=== PATIENT | male | born 1975 | race Caucasian/White ===

== ENCOUNTER 2018-11-07 16:36 | Inpatient (IN) | payer MEDICAID ==
[~2018-11-07] VITALS: Ht 170.2 cm; Wt 78.1 kg
--- NOTE | ~2018-11-07 | HEMODYNAMI ---
PATIENT:DHEERAJ MORLEY MEDICAL RECORD: [id number] : 73 LOCATION:[id number] ADMISSION DATE: 11/07/18 Generatedon:11/09/201812:03 Patient name: DHEERAJ MORLEY Patient #: [id number] SSN: : 1975 Date of study: 11/09/2018 Page: Of Hemodynamic Procedure Report Patient Data Patient Demographics Procedure consent was obtained First Name: DHEERAJ Gender: Male Last Name: MILLI : 1975 Middle Initial: MARGIE Age: 43 year(s) Patient #: [id number] Race: Unknown Additional ID: [id number] Contact details Address: [address] [place] [address] State: [place] City: [place] Zip code: [address] Past Medical History Allergies: No known allergies Admission Admission Data Admission Date: 11/07/2018 Admission Time: 18:56 Room #: D.2237 Height (in.): 66.93 BSA: 1.71 (m2) Height (cm.): 170 BMI: 21.23 (kg/m2) Weight (lbs.): 135.28 Weight (kg.): 61.36 Lab Results Lab Result Date: 11/09/2018 Lab Result Time: 0:00 Biochemistry Name Units Result Min Max BUN mg/dl 34 --(----)-* 7 18 Creatinine mg/dl 1.3 --(---*)-- 0.6 1.3 CBC Name Units Result Min Max Hemoglobin g/dl 13.8 --(*---)-- 13.5 17.5 Procedure Procedure Types Cath Procedure Diagnostic Procedure [facility] w[facility] Procedure Description Procedure Date Procedure Date: 11/09/2018 Procedure Start Time: 11:53 Procedure End Time: 11:59 Procedure Staff Name Function Gregory Chew MD Performing Physician Zion Armando RT Monitor Katya Lira RT Scrub Lucille Qureshi RN Nurse Procedure Data Cath Procedure Fluoroscopy Diagnostic fluoroscopy Total fluoroscopy Time: 0.9 time: 0.9 min min Diagnostic fluoroscopy Total fluoroscopy dose: 279 dose: 279 mGy mGy Contrast Material Contrast Material Type Amount (ml) Isovue 300 21 Entry Location Entry Primary Successful Side Size Upsize Upsize Entry Closure Lynne ccessful Closure Location (Fr) 1 (Fr) 2 (Fr) Remarks Device Remarks Radial Right 6 Fr Mechanical artery Short Compression Estimated blood loss: 10 ml Diagnostic catheters Device Type Used For End Catheter Placement DIAGNOSTIC [place] 110cm 5 Procedure Fr catheter ([id number]) Procedure Complications No complications Procedure Medications Medication Administration Route Dosage Oxygen etCO2 Nasal cannula 2 l/min Lidocaine 2% added to field 20 Heparin Flush Bag added to field 2 bags (1000units/500ml NS) 0.9% NaCl I.V. 100 ml/hr Versed I.V. 2 mg Fentanyl I.V. 100 mcg Versed I.V. 2 mg Radial Cocktail I.A. 1 syringe (Verapomil 2mg/Nitro 400mcg/Heparin 1500units) Hemodynamics Rest BSA: 1.71 (m2) HGB: 13.8 (g/dl) O2 Consumption: Estimated: 231.35 (ml/min) O2 Co nsumption indexed: Estimated:135.29 (ml/min/m) Heart Rate: 108 (bpm) Snapshots Pre Cath Intra NCS Post Cath Vital Signs Time Heart Resp SPO2 etCO2 NIBP (mmHg) Rhythm Pain Sedation Rate (ipm) (%) (mmHg) Status Level (bpm) 11:49:53 107 18 97 16.6 154/114(120) NSR 0 (11) 10(A) , No pain 11:54:03 111 17 99 26.4 156/111(131) NSR 0 (11) 10(A) , No pain 11:58:17 99 13 95 28.7 142/102(116) NSR 0 (11) 9(A) , No pain 12:02:33 98 15 96 27.9 143/99(118) NSR 0 (11) 10(A) , No pain Medications Time Medication Route Dose Verified Delivered Reason Notes Effectiveness by by 11:45:44 Oxygen etCO2 2 l/min Gregory Adkins used for Nasal Jeevan Qureshi RN procedure cannula 11:50:13 Versed I.V. 2 mg Gregory Danielsie for sedation Jeevan Qureshi RN 11:50:19 Fentanyl I.V. 100 mcg Gregory Adkins for sedation Jeevan Qureshi RN 11:51:50 Lidocaine 2% added 20ml Gregory Jenkins for local to vial Jeevan Chew MD anesthetic field 11:51:57 Heparin Flush added 2 bags Gregory Jenkins used for Bag to Jeevan Chew MD procedure (1000units/500ml field NS) 11:52:05 0.9% NaCl I.V. 100 Gregory Adkins Per ml/hr Jeevan Qureshi RN physician 11:55:41 Versed I.V. 2 mg Gregory Adkins for sedation Jeevan Qureshi RN 11:57:05 Radial Cocktail I.A. 1 Gregory Jenkins for (Verapomil syringe Jeevan Chew MD vasodilation 2mg/Nitro 400mcg/Heparin 1500units) Procedure Log Time Note 11:15:49 Zion Armando RT(R) sent for patient. Start room use. 11:15:50 Diagnostic Cath status Elective 11:15:51 Signed procedure consent form obtained from patient. 11:25:14 Patient allergic to No known allergies 11:25:33 Lab Result : BUN 34 mg/dl 11:25:33 Lab Result : Hemoglobin 13.8 g/dl 11:25:33 Lab Result : Creatinine 1.3 mg/dl 11:30:29 Patient Height : 66.93 inches 11:30:38 Patient Weight : 135.28 lbs 11:37:34 Patient received from Med/Surg to CCL 1 Alert and oriented. Tansferred to table in Supine position. 11:37:35 Warm blankets applied, and abner hugger turned on for patient comfort. 11:37:35 Correct patient and procedure confirmed by team. 11:37:36 ECG and BP/O2 sat monitors applied to patient. 11:45:44 Oxygen 2 l/min etCO2 Nasal cannula was administered by Lucille Qureshi RN; used for procedure; 11:48:47 Vital chart was started 11:48:48 Baseline sample Acquired. 11:48:52 Rhythm: sinus rhythm 11:48:53 Full Disclosure recording started 11:49:02 H&P Date Dictated: 11/09/2018 Within 30 days and on chart.. 11:49:03 Pre-procedure instructions explained to patient. 11:49:03 Pre-op teaching completed and patient verbalized understanding. 11:49:05 Family in patients room. 11:49:06 Patient NPO since Midnight. 11:49:09 Is the patient allergic to Iodine/contrast media? No. 11:49:17 Is patient on blood thinner?No 11:49:18 Patient diabetic? No. 11:49:21 Previous problem with sedation/anesthesia? No ? 11:49:23 Snore? Yes 11:49:24 Sleep apnea? No 11:49:25 Deviated septum? No 11:49:26 Opens mouth fully? Yes 11:49:27 Sticks out tongue? Yes 11:49:29 Airway obstruction? No ? 11:49:31 Dentures? No ? 11:49:33 Pre procedure: right dorsailis pedis pulse 1+ Palpable, but thready & weak; easily obliterated 11:49:35 Modified John's test Ulnar < 7 seconds 11:49:37 Patient pain scale 0/10 ?. 11:49:42 IV patent on arrival in right hand with 0.9% NaCl at KVO. 11:49:44 Lab results completed and on chart. 11:49:47 Right Radial & Right Groin area was prepped with chlora-prep and draped in sterile fashion 11:49:47 Alarms reviewed by R. N. 11:49:48 Sharps counted by scrub and verified by R.N. 11:49:49 --------ALL STOP TIME OUT------ 11:49:50 Final Timeout: patient, procedure, and site verified with staff and physician. All members of the team are in agreement. 11:49:56 Right Radial & Right Groin site verified by team. 11:49:59 Physical assessment completed. ASA score P 2 - A patient with mild systemic disease as per Gregory Chew MD. 11:50:02 Sedation plan: IV Moderate Sedation Medication:Versed, Fentanyl 11:50:13 Versed 2 mg I.V. was administered by Lucille Qureshi RN; for sedation; 11:50:19 Fentanyl 100 mcg I.V. was administered by Lucille Qureshi RN; for sedation; 11:51:41 Use device set Radial Dx or PCI 11:51:42 Tegaderm 4 x 4 (1626W) opened to sterile field. 11:51:43 ACIST Manifold (25918) opened to sterile field. 11:51:44 ACIST Hand Control (93098) opened to sterile field. 11:51:45 ACIST Syringe (91898) opened to sterile field. 11:51:45 Medline Cath Pack ([id number]) opened to sterile field. 11:51:46 Bag Decanter (2002) opened to sterile field. 11:51:48 DIAGNOSTIC WIRE .035 260cm J wire (940812) opened to sterile field. 11:51:50 Lidocaine 2% 20ml vial added to field was administered by Gregory Chew MD; for local anesthetic; 11:51:51 SHEATH 6FR Slender (00-4670) opened to sterile field. 11:51:57 Heparin Flush Bag (1000units/500ml NS) 2 bags added to field was administered by Gregory Chew MD; used for procedure; 11:52:05 0.9% NaCl 100 ml/hr I.V. was administered by Lucille Qureshi RN; Per physician; 11:53:47 Procedure started. 11:53:51 Local anesthetic to right radial artery with Lidocaine 2% by Gregory Chew MD.INITIAL ACCESS ONLY 11:54:12 A 6 Fr Short sheath was inserted into the Right Radial artery 11:54:21 A DIAGNOSTIC [place] 110cm 5 Fr catheter (710842) was advanced over the wire and used for Procedure. 11:55:04 LV angiography performed. 11:55:05 LV gram done using SHORE 11:55:09 EF : 15 % 11:55:13 Injector settings: Ml/sec: 7, Volume: 15, 11:55:33 LCA angiography performed. 11:55:41 Versed 2 mg I.V. was administered by Lucille Qureshi RN; for sedation; 11:55:57 RCA angiography performed. 11:55:58 Catheter removed. 11:56:00 TR BAND Standard ([id number]) opened to sterile field. 11:57:05 Radial Cocktail (Verapomil 2mg/Nitro 400mcg/Heparin 1500units) 1 syringe I.A. was administered by Gregory Chew MD; for vasodilation; 11:57:08 Sheath removed intact; hemostasis achieved with Mechanical Compression to the Right Radial artery. 11:57:10 Procedure ended.(Physican Out) 11:57:40 Fluoroscopy time 00.90 minutes. 11:57:44 Fluoroscopy dose: 279 mGy 11:57:44 Flurop Dose total: 279 11:57:48 Contrast amount:Isovue 300 21ml. 11:57:52 Sharps counted by scrub and verified by R.N. 11:57:57 TR band inflated with 10cc of air. 11:57:59 Insertion/operative site no bleeding no hematoma. 11:58:01 Post Procedure Pulses reassessed and unchanged 11:58:03 Post-procedure physical assessment completed. ASA score P 2 - A patient with mild systemic disease as per Gregory Chew MD. 11:58:06 Post procedure rhythm: unchanged. 11:58:08 Estimated blood loss: 10 ml 11:58:17 Post procedure instruction explained to patient.Patient verbalizes understanding. 11:58:18 Patient needs reinforcement of post procedure teaching. 11:58:18 Procedure and supply charges have been captured, reviewed, submitted and are correct. 11:58:38 MBrace Wrist Support ([id number]) opened to sterile field. 11:58:55 Procedure Complication : No complications 11:58:58 Vital chart was stopped 11:58:58 See physician's report for complete and final results. 11:59:02 Report given to Med II. 11:59:05 Patient transfered to Med II with Bed. 11:59:18 Procedure ended. 11:59:18 Full Disclosure recording stopped 12:03:08 End room use (Document Last) Device Usage Item Name Manufacture Quantity Catalog Hospital Part Current Minimal Lot# / Number Charge Number Stock Stock Serial# Code Tegaderm 4 3M 1 1626W [id number] [id number] [id number] 5 x 4 (1626W) ACIST Acist 1 30610 442469 021374 496689 5 Manifold Medical (76657) Systems Inc ACIST Hand Acist 1 08048 576762 906772 318635 5 Control Medical (53387) Systems Inc ACIST Acist 1 98814 321388 903881 808246 20 Syringe Medical (60672) Systems Inc Medline Medline 1 [id number] 114505 80780 795980 5 Cath Pack ([id number]) Bag Microtek 1 2001S 600615 81353 791228 5 Decanter Medical Inc. () DIAGNOSTIC St Amol 1 910147 019781 804605 049894 30 WIRE .035 260cm J wire (327802) SHEATH 6FR Terumo 1 [id number] 549301 658075 591051 5 Slender (80-1060) DIAGNOSTIC Terumo 1 40-1048 654164 282992 186162 5 [place] 110cm 5 Fr catheter (185915) TR BAND Terumo 1 [id number] 862350 152434 423476 40 Standard ([id number]) MBrace Advanced 1 140-0250-00 628155 59299 114673 5 Wrist Vascular Support Dynamics ([id number]) Signature Audit [place] Stage Time Signature Unsigned Intra-Procedure 11/09/2018 Zion Armando 12:03:22 PM RT(R) Signatures Monitor : Zion Armando RT Signature : Date : Time : [facility] [address] [place] [address]
[2018-11-07 18:02] LABS: BASOPHILS 0.4 % (0-2); HEMATOCRIT 40.4 % (42.0-54.0); HEMOGLOBIN 13.7 g/dL (13.5-17.5); IMMATURE GRANULOCYTES 0.3 % (0-5); LYMPHOCYTES 22.1 % (15-50); MCH 30.4 pg (26.0-34.0); MCHC 33.9 g/dL (31.0-37.0); MCV 89.6 fL (80.0-100.0); MEAN PLATELET VOLUME 10.3 fL (7.4-10.4); MONOCYTES 5.8 % (2-11); NEUTROPHILS 62.4 % (40-80); PLATELET COUNT 253 10x3/uL (130-400); RBC 4.51 10x6/uL (4.20-6.10); RDW 14.3 % (11.5-14.5); WBC 7.4 10x3/uL (4.8-10.8)
[2018-11-07 18:21] LABS: ALBUMIN 3.4 g/dL (3.4-5.0); ALKALINE PHOSPHATASE 112 U/L (46-116); ALT (SGPT) 65 U/L (10-68); BILIRUBIN - TOTAL 0.54 mg/dL (0.2-1.3); CALC OSMOLALITY 289 mosm/kg (275-300); CALCIUM 8.6 mg/dL (8.5-10.1); CARBON DIOXIDE 23.1 mmol/L (21.0-32.0); CHLORIDE - SERUM 108 mmol/L (98-107); GLUCOSE 113 mg/dL (74-106); POTASSIUM - SERUM 4.2 mmol/L (3.5-5.1); PROTEIN - SERUM 6.7 g/dL (6.4-8.2); SODIUM 143 mmol/L (136-145); UREA NITROGEN 24 mg/dL (7-18); eGFR NON AFRICAN AMERICAN 86 mL/min (90-120)
[2018-11-08] VITALS: BP 139/100; Ht 170.2 cm; Wt 78.1 kg
[2018-11-08 04:00] VITALS: BP 145/111
[2018-11-08 08:51] VITALS: BP 130/97
[2018-11-08 15:27] VITALS: BP 128/76
[2018-11-08 20:28] VITALS: BP 155/111
[2018-11-08 23:54] VITALS: BP 151/98
[2018-11-09 04:32] VITALS: BP 147/109
[2018-11-09 05:57] LABS: BASOPHILS 0.2 % (0-2); EOSINOPHILS 1.7 % (0-7); HEMOGLOBIN 13.8 g/dL (13.5-17.5); IMMATURE GRANULOCYTES 0.1 % (0-5); MCH 30.1 pg (26.0-34.0); MCHC 32.9 g/dL (31.0-37.0); MCV 91.7 fL (80.0-100.0); MEAN PLATELET VOLUME 11.3 fL (7.4-10.4); MONOCYTES 5.6 % (2-11); NEUTROPHILS 66.4 % (40-80); PLATELET COUNT 361 10x3/uL (130-400); RBC 4.58 10x6/uL (4.20-6.10); RDW 14.9 % (11.5-14.5); WBC 13.2 10x3/uL (4.8-10.8)
[2018-11-09 06:15] LABS: ANION GAP 15.3 mmol/L (8-16); CALCIUM 8.3 mg/dL (8.5-10.1); CARBON DIOXIDE 19.3 mmol/L (21.0-32.0); POTASSIUM - SERUM 4.6 mmol/L (3.5-5.1)
[2018-11-09 06:18] LABS: CREATININE - SERUM 1.3 mg/dL (0.6-1.3)
[2018-11-09 07:06] LABS: CKMB 2.6 U/L (0.0-3.6); CREATINE KINASE 77 UL (21-232)
[2018-11-09 09:00] VITALS: BP 145/113
[2018-11-09 09:02] LABS: TROPONIN-I 0.104 ng/mL (0.000-0.060)
[2018-11-09 11:10] LABS: CREATINE KINASE 313 UL (21-232)
[2018-11-09 11:31] LABS: CKMB 8.2 U/L (0.0-3.6)
[2018-11-09 21:10] VITALS: BP 141/94
[2018-11-10] VITALS (7 sets, daily range): BP systolic 103–150; BP diastolic 62–104
[2018-11-10 06:51] LABS: BASOPHILS 0.2 % (0-2); EOSINOPHILS 6.1 % (0-7); HEMATOCRIT 40.3 % (42.0-54.0); HEMOGLOBIN 13.7 g/dL (13.5-17.5); IMMATURE GRANULOCYTES 0.1 % (0-5); LYMPHOCYTES 26.3 % (15-50); MCH 30.5 pg (26.0-34.0); MCV 89.8 fL (80.0-100.0); MEAN PLATELET VOLUME 11.6 fL (7.4-10.4); MONOCYTES 6.9 % (2-11); NEUTROPHILS 60.4 % (40-80); PLATELET COUNT 284 10x3/uL (130-400); RBC 4.49 10x6/uL (4.20-6.10); RDW 14.6 % (11.5-14.5); WBC 9.5 10x3/uL (4.8-10.8)
[2018-11-10 07:44] LABS: CALC OSMOLALITY 283 mosm/kg (275-300); CALCIUM 8.5 mg/dL (8.5-10.1); CHLORIDE - SERUM 104 mmol/L (98-107); CREATININE - SERUM 1.1 mg/dL (0.6-1.3); GLUCOSE 102 mg/dL (74-106); SODIUM 139 mmol/L (136-145); UREA NITROGEN 29 mg/dL (7-18); eGFR NON AFRICAN AMERICAN 77 mL/min (90-120)
[2018-11-10 07:45] LABS: CARBON DIOXIDE 24.3 mmol/L (21.0-32.0); POTASSIUM - SERUM 3.9 mmol/L (3.5-5.1); TROPONIN-I 0.083 ng/mL (0.000-0.060)
[2018-11-11 03:45] VITALS: BP 114/73
[2018-11-11 08:13] VITALS: BP 135/83
--- NOTE | 2018-11-11 14:36 | OP ---
PATIENT NAME: DHEERAJ MORLEY MEDICAL RECORD: [id number] :73 LOCATION:D.M2 D.2119 ADMISSION DATE:11/07/18 SURGEON: TONY URIARTE MD DATE OF OPERATION: 11/09/2018 PROCEDURES: 1. Left heart catheterization. 2. Selective coronary angiography. 3. Left ventriculogram. INDICATION: Elevated troponin, CHF, dilated cardiomyopathy, and abnormal ECG. PROCEDURE IN DETAIL: After informed consent was obtained with detailed description of risks and benefits as well as alternative therapies, the patient elected to proceed with angiogram and heart catheterization. The right radial area was prepped and draped in normal sterile fashion. Right radial artery was cannulated via modified Seldinger technique with placement of 5-Brazilian sheath. All catheters were exchanged through this sheath. FINDINGS: Left ventriculogram performed in standard 30-degree SHORE view reveals dilated cardiomyopathy. Ejection fraction 10% to 15%. SELECTIVE CORONARY ANGIOGRAPHY: Left main, left anterior descending, left circumflex, and right coronary artery are all smooth-walled vessels with no angiographic evidence of coronary artery disease. OVERALL IMPRESSION: 1. No evidence of coronary artery disease. 2. Severe nonischemic cardiomyopathy. Ejection fraction in 10% to 15% range. Center medical management and treatment of the cardiomyopathy. TRANSINT:[id number] Voice Confirmation ID: [id number] DOCUMENT ID: [id number] TONY URIARTE MD at 1436 CC: [id number] VILLA [id number] DICTATION DATE: 11/09/18 1200 STUNNER ANIMAL: 11/09/18 1857 ADM IN [place] [address] [place] [address]
--- NOTE | 2018-11-11 14:36 | EC ---
PATIENT:DHEERAJ MORLEY DATE OF SERVICE: 11/07/18 SEX: M MEDICAL RECORD: [id number] DATE OF : [birth year] LOCATION:D. D.211 AGE OF PATIENT: 43 ADMISSION DATE: 11/07/18 REFERRING PHYSICIAN: INTERPRETING PHYSICIAN: TONY CHEW MD ECHOCARDIOGRAM REPORT ECHO CHARGES 4 ECHO COMPLETE Date: 11/09/18 CLINICAL DIAGNOSIS: CP ECHOCARDIOGRAPHIC MEASUREMENTS (adult normal given) AC root (d.<3.7cm) 3.6 cm LV Septum d (<1.2 cm> 1.2 cm Valve Excursion 1.8 cm LV Septum (systole) 1.4 cm Left Atria (s.<4.0cm> 4.8 cm LVPW d(<1.2cm) 1.0 cm RV (d.<2.3cm) 3.5 cm LVPW (sytole) 1.0 cm LV diastole(<5.6CM) 6.5 cm MV E-F(>70mm/sec) cm LV systole 5.3 cm LVOT Diameter 2.3 cm MV exc.(>10mm) cm Est.ejection fraction (50-75%) % DOPPLER: LVIT cm/sec A 24 cm/sec E 76 cm/sec LA cm/sec RVSP 54.3 mmHg LVOT 43 cm/sec AOP1/2T m/s Asc. Ao 64 cm/sec RVOT 32 cm/sec RA cm/sec PA 77 cm/sec AV Gradient Peak 1.6 mmHg AV Mean 1.2 mmHg AV Area 2.6 cm MV Gradient Peak 3.3 mmHg MV Mean 1.4 mmHg MV Area cm COMMENTS: Setup Technician: Dennis [facility] [employer] Officer: 1 Dr. Chew TAPE# PACS Pericardial Effusion N DATE OF SERVICE: FINDINGS: 1. Left ventricular chamber size is dilated. Left ventricular systolic function is markedly reduced. Overall ejection fraction is in 10% to 15% range. There is akinesis of the anteroapical segments. 2. Left atrium is enlarged at 4.8 cm. Right atrium and right ventricular chamber sizes are as well mildly dilated, giving 4-chamber dilatation. 3. Valvular structures have normal structure and motion. 4. Doppler interrogation reveals [id number] mitral regurgitation and mild ECHOCARDIOGRAM REPORT [id number] DHEERAJ MORLEY tricuspid regurgitation. No other valvular insufficiency or stenosis. Pulmonary systolic pressure is estimated at 54 mmHg. 5. No evidence of pericardial effusion or left ventricular thrombus. TRANSINT:[id number] Voice Confirmation ID: [id number] DOCUMENT ID: [id number] TONY CHEW MD at 1436 CC: [id number] DICTATION DATE: 11/09/18 1138 CLINICAL LABORATORY TECHNICIAN: 11/09/18 1850 ADM IN [facility] [address] [place] [address]
--- NOTE | 2018-11-11 14:36 | CN ---
PATIENT NAME:DHEERAJ DUMONT MEDICAL RECORD: [id number] : 73 LOCATION:D. D.2119 ADMIT DATE: 11/07/18 ACCOUNT: [id number] CONSULTING PHYSICIAN: TONY URIARTE MD REFERRING PHYSICIAN: PATSY VICTORIA MD DATE OF CONSULTATION: 11/09/2018 DIAGNOSES: 1. Pneumonia. 2. Chest pain. 3. Hypertension. 4. Tachycardia. 5. Elevated troponin. 6. Abnormal ECG. 7. Family history of coronary artery disease. HISTORY: Mr. Dumont presents with shortness of breath and pneumonia. However, he has been having chest discomfort that is not compatible with pneumonia. His troponin is elevated. His EKG has T wave inversions. He has family history of coronary artery disease. Occasional smoker, otherwise no risk factors. PHYSICAL EXAMINATION: GENERAL APPEARANCE: Well-nourished, well-developed, appears stated age. Level of distress, comfortable. PSYCHIATRIC: Mental status, alert, normal affect. Orientation, oriented to time, place and person. EYES: Lids and conjunctiva, noninjected. No discharge, no pallor. ENT: Lips, teeth, gums, normal dentition. Oropharynx, no cyanosis, no pallor. NECK: Carotid arteries, bilateral normal upstroke, no bruits, no thrills. JUGULAR VEINS: No jugular venous pressure or distention. CERVICAL LYMPH NODES: Nontender, nonenlarged. THYROID: Not enlarged. Nontender. No nodules. LUNGS: Respiratory effort, unlabored. CHEST: Normal curvature. No thoracic deformity. No chest wall tenderness. Percussion, resonant. Auscultation, clear. No wheezes, no rales, no rhonchi. CARDIOVASCULAR: Precordial exam, nondisplaced. No heaves or pericardial thrills. Rate and rhythm, regular. Heart sounds, normal S1, normal S2. No S3, no gallop, no rub. Systolic murmur, not heard. Diastolic murmur, not heard. EXTREMITIES: No cyanosis, no edema. Peripheral pulses, full and equal in all extremities, except as noted. No bruits appreciated. ABDOMEN: Soft, nondistended. Normal aorta. No bruit. Nontender. No masses. Liver, nontender, no hepatomegaly. Spleen, nontender, no splenomegaly. MUSCULOSKELETAL: No joint tenderness. No joint swelling. No erythema. NEUROLOGICAL: Normal gait, normal strength, normal tone. SKIN: Warm and dry. OVERALL IMPRESSION: Continued chest pain and shortness of breath with an elevated troponin. We will proceed with coronary angiography. Further care depends upon findings of the angiography. TRANSINT:[id number] Voice Confirmation ID: [id number] DOCUMENT ID: [id number] CONSULT REPORT [id number] DHEERAJ DUMONT, TONY SEYMOUR at 1436 CC: [id number] DICTATION DATE: 11/09/18 0944 YARDER: 11/09/18 [address] [facility] [address] [place] [id number]
[2018-11-11 16:20] VITALS: BP 136/79
[2018-11-11 21:39] VITALS: BP 118/83
[2018-11-12] VITALS: BP 116/80
[2018-11-12 04:00] VITALS: BP 142/74
[2018-11-12 06:53] LABS: ALBUMIN 2.7 g/dL (3.4-5.0); ALKALINE PHOSPHATASE 103 U/L (46-116); ALT (SGPT) 51 U/L (10-68); BILIRUBIN - TOTAL 0.37 mg/dL (0.2-1.3); CALC OSMOLALITY 284 mosm/kg (275-300); CALCIUM 8.2 mg/dL (8.5-10.1); CHLORIDE - SERUM 105 mmol/L (98-107); CREATININE - SERUM 1.1 mg/dL (0.6-1.3); GLUCOSE 147 mg/dL (74-106); POTASSIUM - SERUM 3.9 mmol/L (3.5-5.1); PROTEIN - SERUM 5.8 g/dL (6.4-8.2); SODIUM 140 mmol/L (136-145); eGFR NON AFRICAN AMERICAN 77 mL/min (90-120)
[2018-11-12 06:54] LABS: UREA NITROGEN 21 mg/dL (7-18)
[2018-11-12] MEDS ORDERED: COREG12.5 MG PO (07:42)
[2018-11-12] MEDS ORDERED: ENTRESTO 24 MG1 EACH PO (07:43)
[2018-11-12] MEDS ORDERED: LEVAQUIN750 MG PO (07:43)
--- NOTE | 2018-11-13 07:00 | MORECARE ---
CASE MANAGEMENT DISCHARGE SUMMARY PATIENT: DHEERAJ MORLEY UNIT: [id number] ADM DATE: 11/07/18 AGE: 43 : [birth year] SEX: M ROOM/BED: D.2119 AUTHOR: LYDIA SKY PHYSICIAN: REFERRING PHYSICIAN: PATSY VICTORIA MD DATE OF SERVICE: 11/13/18 Discharge Plan Patient Name: [facility]HE[facility]AJ MORLEY [facility] [facility] 1975 Planned Disposition: Home Anticipated Discharge Date: 11/12/18 Discharge Date: 11/12/2018 Expected LOS: 5 Initial Reviewer: [email or web address] Initial Review Date: 11/13/2018 Generated: 11/13/18 7:59 am Patient Name: DHEERAJ MOLREY Page 10703 at 0700 All edits/amendments must be made on the electronic document DICTATION DATE: 11/13/1859 SETTER OFF: FLORENTINO 11/13/18 0659 RPT#: [id number] DC DATE:11/12/18 STATUS: DIS IN [facility] [address] [place] [address] END OF REPORT
== END 2018-11-12 10:57 | disposition home or self-care (01) | DRG 194 ==
LOC: D.ER 16:36 → D.EDHOLD 18:56 → D.MS 18:56 → D.M2 11-09 12:18
PROVIDERS: Family Medicine; Internal Medicine Interventional Cardiology; ADMIT Family Medicine
PROC: B2151ZZ Fluoroscopy of Left Heart using Low Osmolar Contrast (ICD-10-PCS; 2018-11-09)
PROC: 4A023N7 Measurement of Cardiac Sampling and Pressure, Left Heart, Percutaneous Approach (ICD-10-PCS; 2018-11-09)
PROC: B2111ZZ Fluoroscopy of Multiple Coronary Arteries using Low Osmolar Contrast (ICD-10-PCS; principal; 2018-11-09 11:15)
DX: J18.9 Pneumonia, unspecified organism (principal); I42.0 Dilated cardiomyopathy; R04.2 Hemoptysis; I11.0 Hypertensive heart disease with heart failure; I50.9 Heart failure, unspecified; R79.89 Other specified abnormal findings of blood chemistry; R94.31 Abnormal electrocardiogram [ECG] [EKG]

== ENCOUNTER 2018-11-17 15:48 | Emergency (ER) | payer MEDICAID ==
[~2018-11-17] VITALS: Ht 170.2 cm; Wt 72.7 kg
[~2018-11-17 15:48] MED LIST: COREG12.5 MG PO; ENTRESTO 24 MG1 EACH PO; LEVAQUIN750 MG PO
[2018-11-17 16:20] VITALS: Ht 170.2 cm; Wt 72.7 kg
[2018-11-17 16:57] LABS: BASOPHILS 0.7 % (0-2); EOSINOPHILS 5.7 % (0-7); HEMATOCRIT 42.4 % (42.0-54.0); HEMOGLOBIN 14.1 g/dL (13.5-17.5); IMMATURE GRANULOCYTES 0.3 % (0-5); LYMPHOCYTES 21.5 % (15-50); MCH 29.9 pg (26.0-34.0); MCHC 33.3 g/dL (31.0-37.0); MCV 89.8 fL (80.0-100.0); MEAN PLATELET VOLUME 10.5 fL (7.4-10.4); MONOCYTES 6.7 % (2-11); NEUTROPHILS 65.1 % (40-80); PLATELET COUNT 305 10x3/uL (130-400); RBC 4.72 10x6/uL (4.20-6.10); RDW 14.2 % (11.5-14.5); WBC 8.9 10x3/uL (4.8-10.8)
[2018-11-17 17:03] LABS: APTT 34.6 SECONDS (22.8-39.4); INR 1.13 (0.85-1.17)
[2018-11-17 17:04] LABS: D-DIMER-QUANTITATIVE 0.28 ug/mLFEU (0.20-0.54)
[2018-11-17 17:09] LABS: ALBUMIN 3.5 g/dL (3.4-5.0); ALKALINE PHOSPHATASE 125 U/L (46-116); ALT (SGPT) 138 U/L (10-68); BILIRUBIN - TOTAL 0.85 mg/dL (0.2-1.3); CALC OSMOLALITY 282 mosm/kg (275-300); CARBON DIOXIDE 27.8 mmol/L (21.0-32.0); CHLORIDE - SERUM 103 mmol/L (98-107); CREATININE - SERUM 1.1 mg/dL (0.6-1.3); GLUCOSE 123 mg/dL (74-106); POTASSIUM - SERUM 4.6 mmol/L (3.5-5.1); PROTEIN - SERUM 6.7 g/dL (6.4-8.2); SODIUM 138 mmol/L (136-145); UREA NITROGEN 30 mg/dL (7-18); eGFR NON AFRICAN AMERICAN 77 mL/min (90-120)
[2018-11-17 17:20] LABS: CKMB 0.5 U/L (0.0-3.6); TROPONIN-I 0.035 ng/mL (0.000-0.060)
[2018-11-17] MEDS ORDERED: LASIX20 MG PO (21:52)
[2018-11-17] MEDS ORDERED: POTASSIUM CHLO10 ME1 PO (21:52)
[2018-11-17 22:23] VITALS: BP 128/90
== END 2018-11-17 22:23 | disposition home or self-care (01) ==
LOC: D.ER 15:48
PROVIDERS: Family Medicine
DX: I50.9 Heart failure, unspecified (principal)

== ENCOUNTER 2019-01-01 17:16 | Emergency (ER) | payer MEDICAID ==
[~2019-01-01] VITALS: Ht 170.2 cm; Wt 72.7 kg
[~2019-01-01 17:16] MED LIST changes: +LASIX20 MG PO; +POTASSIUM CHLO10 ME1 PO
[2019-01-01 17:33] VITALS: Ht 170.2 cm; Wt 72.7 kg
[2019-01-01] MEDS ORDERED: AMOXICILLIN500 M1 PO (18:51)
[2019-01-01 19:45] VITALS: BP 135/92
== END 2019-01-01 19:45 | disposition home or self-care (01) ==
LOC: D.ER 17:16
DX: H66.91 Otitis media, unspecified, right ear (principal); J06.9 Acute upper respiratory infection, unspecified; R51 Headache; I10 Essential (primary) hypertension

== ENCOUNTER 2019-01-20 13:30 | Emergency (ER) | payer MEDICAID ==
[~2019-01-20] VITALS: Ht 170.2 cm; Wt 81.8 kg
[~2019-01-20 13:30] MED LIST changes: +AMOXICILLIN500 M1 PO
[2019-01-20 13:35] VITALS: Ht 170.2 cm; Wt 81.8 kg
[2019-01-20 14:23] LABS: BASOPHILS 0.5 % (0-2); EOSINOPHILS 5.4 % (0-7); HEMATOCRIT 44.9 % (42.0-54.0); HEMOGLOBIN 15.8 g/dL (13.5-17.5); IMMATURE GRANULOCYTES 0.5 % (0-5); LYMPHOCYTES 22.1 % (15-50); MCH 30.9 pg (26.0-34.0); MCHC 35.2 g/dL (31.0-37.0); MCV 87.7 fL (80.0-100.0); MEAN PLATELET VOLUME 9.5 fL (7.4-10.4); MONOCYTES 7.3 % (2-11); NEUTROPHILS 64.2 % (40-80); RBC 5.12 10x6/uL (4.20-6.10); RDW 15.5 % (11.5-14.5); WBC 5.9 10x3/uL (4.8-10.8)
[2019-01-20 14:29] LABS: ALBUMIN 4.1 g/dL (3.4-5.0); ALKALINE PHOSPHATASE 136 U/L (46-116); ALT (SGPT) 42 U/L (10-68); BILIRUBIN - TOTAL 0.97 mg/dL (0.2-1.3); CALC OSMOLALITY 279 mosm/kg (275-300); CALCIUM 8.9 mg/dL (8.5-10.1); CARBON DIOXIDE 27.7 mmol/L (21.0-32.0); CHLORIDE - SERUM 102 mmol/L (98-107); GLUCOSE 101 mg/dL (74-106); POTASSIUM - SERUM 4.1 mmol/L (3.5-5.1); PROTEIN - SERUM 7.6 g/dL (6.4-8.2); SODIUM 139 mmol/L (136-145); UREA NITROGEN 17 mg/dL (7-18); eGFR NON AFRICAN AMERICAN 86 mL/min (90-120)
[2019-01-20 14:31] LABS: PLATELET COUNT 241 10x3/uL (130-400)
[2019-01-20 14:49] LABS: CKMB 1.8 U/L (0.0-3.6); CREATINE KINASE 139 UL (21-232); PRO BNP 804 pg/mL (0-125); TROPONIN-I < 0.017 ng/mL (0.000-0.060)
[2019-01-20 16:52] VITALS: BP 141/96
== END 2019-01-20 16:50 | disposition home or self-care (01) ==
LOC: D.ER 13:30
PROVIDERS: Family Medicine
DX: R07.9 Chest pain, unspecified (principal); I42.0 Dilated cardiomyopathy

== ENCOUNTER 2019-02-15 22:06 | Emergency (ER) | payer MEDICAID ==
[~2019-02-15] VITALS: Ht 170.2 cm; Wt 77.3 kg
[2019-02-15 22:13] VITALS: Ht 170.2 cm; Wt 77.3 kg
[2019-02-16 00:18] VITALS: BP 134/68
== END 2019-02-16 00:18 | disposition home or self-care (01) ==
LOC: D.ER 22:06
DX: T78.40XA Allergy, unspecified, initial encounter (principal); X58.XXXA Exposure to other specified factors, initial encounter; L50.9 Urticaria, unspecified

== ENCOUNTER → 2019-07-07 10:28 | Outpatient (CLI) | payer MEDICAID ==
[2019-02-15 22:13] VITALS: BMI 26.7
--- NOTE | 2019-07-08 11:10 | EC ---
PATIENT:DHEERAJ MORLEY DATE OF SERVICE: 07/07/19 SEX: M MEDICAL RECORD: [id number] DATE OF : 73 [facility] AGE OF PATIENT: 44 ADMISSION DATE: 07/07/19 REFERRING PHYSICIAN: INTERPRETING PHYSICIAN: TONY CHEW MD ECHOCARDIOGRAM REPORT ECHO CHARGES 4 ECHO COMPLETE Date: 07/07/19 CLINICAL DIAGNOSIS: ASSESS LV FUNCTION, NON ISCHEMIC CARDIOMYOPATHY ECHOCARDIOGRAPHIC MEASUREMENTS (adult normal given) AC root (d.<3.7cm) 3.9 cm LV Septum d (<1.2 cm> 1.5 cm Valve Excursion 2.5 cm LV Septum (systole) 1.8 cm Left Atria (s.<4.0cm> 4.6 cm LVPW d(<1.2cm) 1.6 cm RV (d.<2.3cm) 4.2 cm LVPW (sytole) 1.8 cm LV diastole(<5.6CM) 5.5 cm MV E-F(>70mm/sec) cm LV systole 3.8 cm LVOT Diameter 2.5 cm MV exc.(>10mm) 1.8 cm Est.ejection fraction (50-75%) % DOPPLER: LVIT cm/sec A 76.0 cm/sec E 37.0 cm/sec LA cm/sec RVSP 35 mmHg LVOT 67 cm/sec AOP1/2T m/s Asc. Ao 85 cm/sec RVOT 62 cm/sec RA cm/sec PA 98 cm/sec AV Gradient Peak 2.91 mmHg AV Mean 1.68 mmHg AV Area 4.1 cm MV Gradient Peak 6.40 mmHg MV Mean 1.33 mmHg MV Area cm COMMENTS: Truck Dispatcher: 2 WILFREDO LAGOS Atm Mechanic: 1 Dr. Chew TAPE# PACS Pericardial Effusion N DATE OF SERVICE: FINDINGS: 1. Left ventricular chamber size is within normal limits. Left ventricular systolic function is normal. Overall ejection fraction estimated at 60%. 2. Left atrium is enlarged at 4.6 cm. Right atrium and right ventricular chamber sizes are as well mildly dilated. 3. Valvular structures have normal structure and motion. 4. Doppler interrogation reveals mild mitral regurgitation, mild tricuspid regurgitation, no other valvular insufficiency or stenosis. Pulmonary systolic ECHOCARDIOGRAM REPORT [id number] DHEERAJ MORLEY pressure is estimated at 35 mmHg. 5. No evidence of pericardial effusion or left ventricular thrombus. TRANSINT:[id number] Voice Confirmation ID: [id number] DOCUMENT ID: [id number] TONY CHEW MD at 1110 CC: [id number] DICTATION DATE: 07/07/19 1637 ALTERATIONS WORKROOM CLERK: 07/07/19 2104 DEP CLI 07/07/19 [place] [id number] [place] [id number]
== END | disposition home or self-care (01) ==
LOC: D.HCCARDIO 06-27 14:00
PROVIDERS: ATTEND Internal Medicine Interventional Cardiology
DX: I42.9 Cardiomyopathy, unspecified (principal)

== ENCOUNTER 2020-02-06 14:24 | Emergency (ER) | payer MEDICAID ==
[~2020-02-06] VITALS: Ht 170.2 cm; Wt 85.0 kg
[2020-02-06 14:33] VITALS: Ht 170.2 cm; Wt 85.0 kg
[2020-02-06 14:57] LABS: BASOPHILS 0.6 % (0-2); EOSINOPHILS 7.8 % (0-7); HEMOGLOBIN 15.2 g/dL (13.5-17.5); IMMATURE GRANULOCYTES 0.3 % (0-5); LYMPHOCYTES 32.4 % (15-50); MCH 31.1 pg (26.0-34.0); MCHC 33.8 g/dL (31.0-37.0); MCV 92.2 fL (80.0-100.0); MEAN PLATELET VOLUME 9.7 fL (7.4-10.4); MONOCYTES 5.5 % (2-11); NEUTROPHILS 53.4 % (40-80); PLATELET COUNT 225 10x3/uL (130-400); RBC 4.88 10x6/uL (4.20-6.10); RDW 13.2 % (11.5-14.5); WBC 6.6 10x3/uL (4.8-10.8)
[2020-02-06 15:12] LABS: APTT 34.1 SECONDS (22.8-39.4); CALC OSMOLALITY 281 mosm/kg (275-300); CALCIUM 8.7 mg/dL (8.5-10.1); CARBON DIOXIDE 28.9 mmol/L (21.0-32.0); CHLORIDE - SERUM 106 mmol/L (98-107); GLUCOSE 97 mg/dL (74-106); INR 0.99 (0.85-1.17); PROTIME 13.1 SECONDS (11.6-15.0); SODIUM 141 mmol/L (136-145); UREA NITROGEN 14 mg/dL (7-18); eGFR NON AFRICAN AMERICAN 86 mL/min (90-120)
[2020-02-06 15:26] LABS: ALBUMIN 3.6 g/dL (3.4-5.0); ALKALINE PHOSPHATASE 125 U/L (30-120); ALT (SGPT) 27 U/L (10-68); CREATINE KINASE 58 UL (21-232); PROTEIN - SERUM 6.9 g/dL (6.4-8.2)
[2020-02-06 15:29] LABS: TROPONIN-I < 0.017 ng/mL (0.000-0.060)
[2020-02-06] MEDS ORDERED: LASIX40 MG PO (17:19)
[2020-02-06 17:38] VITALS: BP 140/99
== END 2020-02-06 17:39 | disposition home or self-care (01) ==
LOC: D.ER 14:24
PROVIDERS: Family Medicine
DX: R06.01 Orthopnea (principal); Z76.0 Encounter for issue of repeat prescription; I25.2 Old myocardial infarction

== ENCOUNTER → 2020-03-16 16:17 | Outpatient (CLI) | payer MEDICAID ==
[2020-02-06 14:33] VITALS: BMI 29.3
[~2020-03-16 16:17] MED LIST changes: +LASIX40 MG PO
[2020-03-16 16:35] LABS: BASOPHILS 0.5 % (0-2); EOSINOPHILS 12.1 % (0-7); HEMATOCRIT 48.1 % (42.0-54.0); HEMOGLOBIN 15.8 g/dL (13.5-17.5); IMMATURE GRANULOCYTES 0.5 % (0-5); LYMPHOCYTES 27.7 % (15-50); MCHC 32.8 g/dL (31.0-37.0); MCV 94.3 fL (80.0-100.0); MEAN PLATELET VOLUME 9.1 fL (7.4-10.4); MONOCYTES 5.1 % (2-11); NEUTROPHILS 54.1 % (40-80); RDW 13.2 % (11.5-14.5); WBC 6.6 10x3/uL (4.8-10.8)
[2020-03-16 16:42] LABS: PLATELET COUNT 311 10x3/uL (130-400)
[2020-03-16 17:53] LABS: ERYTHROCYTE SEDIMENTATION RATE 3 mm/hr (0-15)
== END | disposition home or self-care (01) ==
LOC: D.LAB 16:17
PROVIDERS: ATTEND Orthopaedic Surgery
DX: T84.54XA Infection and inflammatory reaction due to internal left knee prosthesis, initial encounter (principal)